=== PATIENT | female | born 1980 | race Caucasian/White ===

== ENCOUNTER 2018-05-07 08:24 | Observation (INO) | payer OTHER ==
[2018-05-07] MEDS ORDERED: FOLI1 PO (08:44)
[2018-05-07] MEDS ORDERED: PREN1TAB80 PO (08:44)
[2018-05-07 10:54] VITALS: BP 111/71
== END 2018-05-07 13:10 | disposition home or self-care (01) ==
LOC: 4S 08:24
PROVIDERS: ADMIT Obstetrics & Gynecology; ATTEND Obstetrics & Gynecology
DX: O62.9 Abnormality of forces of labor, unspecified (principal); O09.523 Supervision of elderly multigravida, third trimester; Z3A.39 39 weeks gestation of pregnancy

== ENCOUNTER 2018-05-13 08:44 | Inpatient (IN) | payer OTHER ==
[~2018-05-13] VITALS: Ht 168 cm; Wt 92.5 kg
[~2018-05-13 08:44] MED LIST: FOLI1 PO; PREN1TAB80 PO
[2018-05-13] MEDS ORDERED: RINGERS SOLUTION,LACTATED 1,000 ML IV PRN (08:49)
[2018-05-13] MEDS: OXYGEN THERAPY IH SCH ×2 (09:00→20:00)
[2018-05-13] MEDS ORDERED: CITRIC ACID/SODIUM CITRATE 30 ML SOLUTION UDCUP PO PRN (09:00)
[2018-05-13] MEDS ORDERED: METHYLERGONOVINE MALEATE 0.2 MG/ML VIAL IM PRN (09:00)
[2018-05-13] MEDS ORDERED: METOCLOPRAMIDE HCL 5 MG/ML 2 ML VIAL IVP PRN (09:00)
[2018-05-13] MEDS ORDERED: FentaNYL CITRATE-PF 100 MCG/2 ML VIAL IVP PRN (09:00)
[2018-05-13 09:25] VITALS: BP 112/67
[2018-05-13 13:58] LABS: BASOPHILS % (AUTO) 0.3 % (0.0-2.0); EOSINOPHILS % (AUTO) 0.3 % (1.0-6.0); HEMATOCRIT 35.8 % (36-46); HEMOGLOBIN 12.1 g/dL (12.0-16.0); LYMPHOCYTES # (AUTO) 0.8 K/uL (1.0-4.8); LYMPHOCYTES % (AUTO) 16.8 % (22.0-44.0); MEAN CORPUSCULAR HGB CONC 33.9 G/dL (31.0-37.0); MEAN CORPUSCULAR VOLUME 89 fL (80-100); MONOCYTES # (AUTO) 0.3 K/uL (0.1-1.0); MONOCYTES % (AUTO) 7.5 % (2.0-9.0); NEUTROPHILS # (AUTO) 3.5 K/uL (1.8-7.7); NEUTROPHILS % (AUTO) 75.1 % (40.0-70.0); PLATELET COUNT (AUTO)-OB 193 K/uL (150-450); RED BLOOD CELL COUNT(AUTO) 4.05 MIL/uL (4.00-5.20); RED CELL DISTRIBUTION WIDTH 15.9 % (11.5-14.5)
[2018-05-13] MEDS: MISOPROSTOL 25 MCG TABLET PO SCH ×2 (15:02→20:10)
[2018-05-13] MEDS: RINGERS SOLUTION,LACTATED 1,000 ML IV SCH ×2 (15:03→22:04)
[2018-05-14] MEDS ORDERED: OXYTOCIN 30 UNITS/LACT RINGERS 500 ML IV PRN
[2018-05-14] MEDS: RINGERS SOLUTION,LACTATED 1,000 ML IV SCH ×2 (06:25→11:39)
[2018-05-14] MEDS: OXYGEN THERAPY IH SCH (08:00)
[2018-05-14] MEDS ORDERED: ROPIVACAINE HCL/PF 0.2% 100 ML ED ONE (09:18)
[2018-05-14] MEDS ORDERED: ROPIVACAINE HCL/PF 0.2% 100 ML ED PRN (09:52)
[2018-05-14] MEDS ORDERED: LIDOCAINE/PF 1% 30 ML VIAL ONE (13:17)
[2018-05-14] MEDS ORDERED: OXYTOCIN 30 UNITS/LACT RINGERS 500 ML IV ONE (14:18)
[2018-05-14] MEDS ORDERED: OxyCODONE HCL/ACETAMINOPHEN 5-325 MG TABLET PO PRN ×2 (14:30)
[2018-05-14] MEDS ORDERED: LANOLIN 7 GM OINTMENT TP PRN (14:30)
[2018-05-14] MEDS ORDERED: GLYCERIN/WITCH HAZEL LEAF 40 PADS JAR TP PRN (14:30)
[2018-05-14] MEDS ORDERED: BENZOCAINE 20%/MENTHOL 56 GM SPRAY CANISTER TP PRN (14:30)
[2018-05-14] MEDS: MAGNESIUM HYDROXIDE SUSPENSION 30 ML UDCUP PO PRN (20:06)
[2018-05-14] MEDS: IBUPROFEN 800 MG TABLET PO PRN (20:06)
[2018-05-15 06:29] LABS: BASOPHILS % (AUTO) 0.5 % (0.0-2.0); EOSINOPHILS % (AUTO) 0.4 % (1.0-6.0); HEMATOCRIT 34.5 % (36-46); HEMOGLOBIN 11.9 g/dL (12.0-16.0); LYMPHOCYTES # (AUTO) 1.2 K/uL (1.0-4.8); LYMPHOCYTES % (AUTO) 17.9 % (22.0-44.0); MEAN CORPUSCULAR HEMOGLOBIN 30.3 pg (26.0-34.0); MEAN CORPUSCULAR HGB CONC 34.6 G/dL (31.0-37.0); MEAN CORPUSCULAR VOLUME 88 fL (80-100); MONOCYTES # (AUTO) 0.5 K/uL (0.1-1.0); MONOCYTES % (AUTO) 7.6 % (2.0-9.0); NEUTROPHILS # (AUTO) 5.1 K/uL (1.8-7.7); NEUTROPHILS % (AUTO) 73.6 % (40.0-70.0); PLATELET COUNT (AUTO)-OB 192 K/uL (150-450); RED BLOOD CELL COUNT(AUTO) 3.94 MIL/uL (4.00-5.20); RED CELL DISTRIBUTION WIDTH 15.7 % (11.5-14.5)
[2018-05-15] MEDS: IBUPROFEN 800 MG TABLET PO PRN (08:33)
[2018-05-15] MEDS: MAGNESIUM HYDROXIDE SUSPENSION 30 ML UDCUP PO PRN (08:34)
[2018-05-15] MEDS ORDERED: IBUP-2071 PO (10:39)
[2018-05-15] MEDS ORDERED: DSS100 PO (10:40)
[2018-05-15] MEDS ORDERED: FERR-89 PO (10:40)
== END 2018-05-15 16:35 | disposition home or self-care (01) | DRG 807 ==
LOC: OBSVTOIN 08:44 → 4S 08:44
PROVIDERS: ADMIT Obstetrics & Gynecology; ATTEND Obstetrics & Gynecology
PROC: 0KQM0ZZ Repair Perineum Muscle, Open Approach (ICD-10-PCS; principal; 2018-05-14)
PROC: 10E0XZZ Delivery of Products of Conception, External Approach (ICD-10-PCS; 2018-05-14)
PROC: 3E0R3BZ Introduction of Anesthetic Agent into Spinal Canal, Percutaneous Approach (ICD-10-PCS; 2018-05-14)
PROC: 00HU33Z Insertion of Infusion Device into Spinal Canal, Percutaneous Approach (ICD-10-PCS; 2018-05-14)
DX: O70.1 Second degree perineal laceration during delivery (principal); Z37.0 Single live birth; Z3A.40 40 weeks gestation of pregnancy
CPT/HCPCS: 86850; 86900; 86901; J2590; J2795; J3490; J7120